=== PATIENT | female | born 1990 | race Asian ===

== ENCOUNTER → 2024-09-29 09:25 | Outpatient (REF) | payer OTHER, SELFPAY | LOC: HWRAD 09:25 | PROVIDERS: ATTENDING PHYSICIAN Internal Medicine | DX: M79.662 Pain in left lower leg (principal) | CPT/HCPCS: 76882 ==

== ENCOUNTER 2025-03-24 18:55 | Emergency (ER) | payer OTHER, SELFPAY ==
[2025-03-24 19:01] VITALS: BP 127/75
[2025-03-24 19:13] LABS: Hematocrit 36.1 % (37.0-47.0); Hemoglobin 12.1 g/dL (12.0-16.0); Mean Corp Hgb Conc. 33.5 g/dL (33.0-37.0); Mean Corpuscular Volume 88.0 fL (81.0-99.0); Nucleated Red Blood Cells % 0 %; Platelet Count 325 10^3/uL (130-400); Red Cell Dist. Width 12.3 % (11.5-14.5)
[2025-03-24 19:35] LABS: ALT (SGPT) 13 U/L (0-35); AST (SGOT) 19 U/L (14-36); Albumin 4.9 g/dl (3.5-5.0); Alkaline Phosphatase 39 U/L (38-126); Blood Urea Nitrogen 12 mg/dl (7-17); Calcium 9.7 mg/dl (8.4-10.2); Carbon Dioxide 26 mmol/L (22-30); Chloride 104 mmol/L (98-107); Glucose 107 mg/dl (70-99); Potassium 4.0 mmol/L (3.5-5.1); Sodium 135 mmol/L (135-145); Total Protein 7.9 g/dl (6.3-8.2); eGFR > 60.00
[2025-03-24 21:55] VITALS: BMI 24.6
--- NOTE | 2025-03-24 21:58 | ED.GENMED ---
History of Present Illness
General
Chief Complaint: Abdominal Symptoms
Source: patient and significant other
Exam Limitations: none
Time Seen by Provider: 03/24/25 21:37
Nursing documentation reviewed up to this point in time: agreed with
History of Present Illness
History of Present Illness:
34-year-old female with no reported chronic medical issues presents to the ER for evaluation of headache. Patient reports acute onset of symptoms around 3 PM�she says that symptoms started relatively mild and progressed to become very severe. She
reports bifrontal headache like a pressure sensation. She says she has had associated nausea and vomiting. She says she has some mild associated chest pain since vomiting. She denies any photosensitivity. She denies any pain in the eyes. She
denies any neck pain. She denies any abdominal or back pain. She denies any numbness or weakness in her extremities, change in her vision or speech. She denies any trauma to the head. She denies any recent fevers, chills or URI symptoms. She
said she has never had similar symptoms in the past. She has not yet taken any medication for symptoms. She does note that she is currently on her menstrual period day 1.
Review of Systems
Review of Systems
All Other Systems: ROS reviewed and negative except as documented in HPI and ROS
Constitutional: Denies fever or chills
EENT: Denies sore throat or runny nose
Respiratory: Denies cough or trouble breathing
Cardiac: Reports chest pain
ABD/GI: Reports nausea and vomiting; Denies abdominal pain or diarrhea
: Denies flank pain
Musculoskeletal: Denies neck pain or back pain
Neurological: Reports headache; Denies dizzy, weakness or numbness
Phy Exam
Physical Exam
Physical Exam:
General: Awake, alert, oriented x3; no acute distress
Head: Normocephalic, atraumatic
Eyes: Conjunctiva normal, EOMI, pupils equal round reactive to light bilaterally
Throat: Airway intact, handling secretions
Neck: Trachea midline, supple without meningismus, full range of motion
Lungs: Clear to auscultation bilaterally, no wheezing, rales, rhonchi
Heart: Regular rate and rhythm, no murmurs, gallops, or rubs
Abd: Soft, non distended, nontender
Neuro: Cranial nerves intact 2 through 12, speech fluid without dysarthria or aphasia, no limb ataxia, motor and sensory intact in all extremities
Skin: no rash noted
Extremities: Warm and well-perfused
Scores
Heart Failure Risk
Heart Failure Risk Score: Not Applicable
Heart Score for Chest Pain Patients
STEMI patient?: Not applicable
Withdrawal Assessment of Alcohol
Withdrawal Assessment Completed?: Not applicable
Course
Orders/Labs/Results
Orders:
Orders
03/24/25 19:04
Electrocardiogram (*1) Urgent
Reason for Study: Chest Pain
EKG- Treatment ONCE
03/24/25 19:05
CT Head W/o Iv Contrast Urgent
Comment:
Reason For Exam: headache, vomiting
03/24/25 19:07
Complete Blood Count/With Diff Urgent
Comprehensive Metabolic Panel Urgent
HCG, Serum Qualitative Screen Urgent
Comment: ADD ON
03/24/25 21:39
Add On- LAB Urgent
Tests Added?: serum hcg
03/24/25 21:54
CT Head & Neck Angio W/wo IV Urgent
Comment:
Reason For Exam: severe headache
Diphenhydramine [Benadryl] 50 mg IV NOW STA
Ketorolac [Toradol] 15 mg IV NOW STA
Magnesium Sulfate 2 Gram/50 ml [Magnesium Sulfate] 2 gram in 50 ml IV NOW
Metoclopramide [Reglan] 10 mg IV NOW STA
03/24/25 21:55
0.9% Sodium Chloride 1000 ml [Nss] 1,000 ml IV BOLUS
Acetaminophen [Tylenol] 1,000 mg PO NOW STA
03/24/25 22:04
CR Chest - 2 Views Urgent
Comment:
Reason For Exam: chest pain, vomiting
03/24/25 22:32
COVID-19 Antigen Urgent
Source: Nasal Swab
Troponin I Urgent
Influenza A+B Rapid Molecular Urgent
CARINE Source: Nasal Swab
Specimen Description:
Abnormal Lab Results
03/24/25
19:07
RBC 4.10 L 10^6/uL
(4.20-5.40)
Hct 36.1 L %
(37.0-47.0)
Neutrophils % 78.0 H %
(42.2-75.2)
Lymphocytes % 18.0 L %
(20.5-51.1)
Creatinine 0.5 L mg/dL
(0.6-1.0)
Glucose 107 H mg/dl
(70-99)
03/24/25 19:07
03/24/25 19:07
Vital Signs
Initial and Last Documented VS:
Initial Vital Signs
Temp Pulse Resp BP Pulse Ox
36.8 C 89 18 127/75 100
03/24/25 19:01 03/24/25 19:01 03/24/25 19:01 03/24/25 19:01 03/24/25 19:01
Last Documented Vital Signs
Temp Pulse Resp BP Pulse Ox
36.8 C 98 21 107/60 100
03/24/25 19:01 03/24/25 23:15 03/24/25 23:15 03/24/25 23:00 03/24/25 22:26
MDM/Problems Addressed
Differential Diagnosis Includes:
Migraine headache, tension headache, viral infection, brain mass, subarachnoid hemorrhage; low clinical suspicion for meningitis, low suspicion for CVT with no risk factors
MDM/Problems Addressed:
34-year-old female with no reported chronic medical issues presents for evaluation of significant headache�started abruptly at around 3 PM while at rest and gradually increased throughout the evening. She did have associated nausea and vomiting.
Vitals and exam as above. She had lab work in triage including a CBC and a CMP which showed no clinically significant abnormalities. Added hCG. She reported some chest pain which I suspect may be related to vomiting�will check chest x-ray, EKG
and troponin. Will send viral swabs. She did have CT head in triage which was negative for any acute abnormality. Will check CTA to rule out signs of aneurysm. Will treat symptomatically, reassess after the above.
Clinical reassessment after medications here in the ER patient says nausea has completely resolved headache has significantly improved she is feeling much better. She is sleeping comfortably in bed on my entering. Her vital signs are normal.
Awaiting results of CTA although on my initial review appears to show no acute abnormalities. Suspect that this may be mild viral illness or perhaps migraine. She has nothing to suggest meningitis�supple neck, no fever, no photophobia. Plan
likely for discharge if she remains well-appearing with minimal symptoms pending final report on CTA.
Patient radiology report reviewed: CTA shows no signs of aneurysm or any other acute pathology. Patient remains well-appearing sleeping comfortably. Stable for discharge. Spoke to her about follow-up plan and return precautions. All questions
answered.
*Radiology
Radiology exam reviewed: radiology read reviewed
*Pulse Oximetry
SaO2: 100
Patient hypoxic: no (100%)
*EKG
Interpreted by ED Provider?: Yes
Heart Rate: 88
Rate: normal
Rhythm: sinus
[place]: normal axis
Interval: normal interval
QRS Pattern: normal QRS
Ischemia: no ischemia
*Critical Care Note
Total Time (30-74mins, 75-104mins- exclusive of procedures): Not Applicable
Data Reviewed
Source: patient and significant other
ED Attending Note
-
Portions of this chart may have been created with voice recognition software.� Occasional wrong word or��sound alike� substitutions may have occurred due to the inherent limitations of voice recognition software.
Discharge Plan
Departure
Patient Disposition: Home (Routine Discharge)
Date of Disposition: 03/24/25
Time of Disposition: 23:55
Patient with high blood pressure during this ER visit?: No
Discharge Problem:
Headache, Nausea & vomiting
Instructions: Nausea and Vomiting, Adult (DC), Headaches in adults
Prescriptions:
No Action
No Current Medications
0
Referrals:
UNKNOWN - PT DOES,NOT KNOW [Unknown Provider]
Activity Restrictions/Additional Instructions:
Thank you for visiting the Emergency Department at [facility].
1. Please schedule a follow up appointment as directed. Call first thing tomorrow morning to make an appointment.
2. If indicated, please take your medications as instructed and indicated on discharge paperwork.
3. If any of your symptoms do not improve, or persist, or become more severe within 6-12 hours, please return to the emergency department for further care.
4. Please return to the emergency department if you develop a headache, neck pain/stiffness, fever greater than 100.4F, chest pain, shortness of breath, persistent nausea, vomiting, slurred speech, difficulty walking, numbness/tingling, weakness,
signs of infection or any other symptoms that are worrisome to you.
Please call [phone] if you have any questions.
Interventions
Interventions:
*Risk Screen - Suicide Last Done: 03/24/25 19:02
*General Assessment Last Done: 03/24/25 22:19
*Neglect/Abuse Screening Last Done: 03/24/25 19:02
*ED- Fall Risk Assessment Last Done: 03/24/25 22:19
*ED COVID-19 Vaccine History Last Done: 03/24/25 22:19
BF-Gezvcf-Goqodjusdm Assessment Last Done: 03/24/25 22:46
Discharge Date and Time
Print Language: ITALIAN
[2025-03-24 22:12] LABS: HCG, Serum Qualitative Screen Negative
[2025-03-24 22:20] VITALS: BP 112/63
[2025-03-24] MEDS: NSS 1000 IV (22:26)
[2025-03-24] MEDS: REGLAN 10 MG IV (22:27)
[2025-03-24] MEDS: BENADRYL 50 MG IV (22:27)
[2025-03-24] MEDS: TORADOL 15 MG IV (22:27)
[2025-03-24] MEDS: TYLENOL 1000 MG PO (22:28)
[2025-03-24] MEDS: MAGNESIUM SULFATE 50 IV (22:31)
[2025-03-24 23:00] VITALS: BP 107/60
[2025-03-24 23:16] LABS: Troponin I < 0.012 ng/ml
[2025-03-24 23:18] LABS: COVID-19 Antigen Negative (Negative)
[2025-03-25] VITALS: BP 110/62
== END 2025-03-25 00:10 | disposition home or self-care (01) ==
LOC: EMR 18:55
PROVIDERS: Emergency Medicine; EMERGENCY PHYSICIAN Emergency Medicine; FAMILY PHYSICIAN Internal Medicine
DX: R51.9 Headache, unspecified (principal); R11.2 Nausea with vomiting, unspecified; Z11.52 Encounter for screening for COVID-19
CPT/HCPCS: 96365; 96375; 99285; 70450; 70496; 70498; 71046; 80053; 84484; 84703; 85025; 87502; 87811; 93005; Q9967